=== PATIENT | female | born 1990 | race Caucasian/White ===

== ENCOUNTER → 2024-06-17 08:29 | Outpatient (CLI) | payer OTHER, SELFPAY ==
[2024-06-19 20:10] LABS: AFP Value 120.4 ng/mL (.); Gest Age on Col Date 20.7 weeks (.); Insulin Dep Diabetes No (.); OSBR Risk 1IN 3671 (.); Results Report (.); Test Results *Screen Negative* (.)
== END ==
PROVIDERS: PCP Physician Assistant Medical; Referring Provider Obstetrics & Gynecology; Visit Provider Obstetrics & Gynecology
DX: Z34.82 Encounter for supervision of other normal pregnancy, second trimester (principal); Z3A.19 19 weeks gestation of pregnancy
CPT/HCPCS: 36415; 82105

== ENCOUNTER → 2024-07-23 12:21 | Outpatient (CLI) | payer OTHER, SELFPAY ==
[2024-07-23 14:31] LABS: Hematocrit 32.2 % (36-46)
[2024-07-23 15:03] LABS: GTT (PREG) 1 Hour PP 50gm Dose 108 mg/dL (76-139)
== END ==
PROVIDERS: PCP Physician Assistant Medical; Referring Provider Obstetrics & Gynecology; Visit Provider Obstetrics & Gynecology
DX: Z3A.26 26 weeks gestation of pregnancy (principal); Z34.82 Encounter for supervision of other normal pregnancy, second trimester
CPT/HCPCS: 36415; 82950; 85014; 85018

== ENCOUNTER 2024-08-28 09:57 | Outpatient (CLI) | payer OTHER, SELFPAY | END 2024-08-28 11:44 | disposition home or self-care (01) | LOC: LABOR 10:44 → OB 08-31 06:12 | PROVIDERS: PCP Physician Assistant Medical; Referring Provider Obstetrics & Gynecology; Visit Provider Obstetrics & Gynecology | DX: O09.523 Supervision of elderly multigravida, third trimester (principal); O30.033 Twin pregnancy, monochorionic/diamniotic, third trimester; Z3A.29 29 weeks gestation of pregnancy | CPT/HCPCS: 59025; G0378; G0379 ==

== ENCOUNTER 2024-09-03 15:46 | Outpatient (CLI) | payer OTHER, SELFPAY | END 2024-09-03 16:37 | disposition home or self-care (01) | LOC: OB 09-07 11:43 | PROVIDERS: PCP Physician Assistant Medical; Referring Provider Obstetrics & Gynecology; Visit Provider Obstetrics & Gynecology | DX: O30.033 Twin pregnancy, monochorionic/diamniotic, third trimester (principal); O09.523 Supervision of elderly multigravida, third trimester; Z3A.30 30 weeks gestation of pregnancy | CPT/HCPCS: 59025; G0378; G0379 ==

== ENCOUNTER 2024-09-09 10:01 | Outpatient (CLI) | payer OTHER, SELFPAY | END 2024-09-09 10:58 | disposition home or self-care (01) | LOC: LABOR 11:00 → OB 09-13 09:26 | PROVIDERS: PCP Physician Assistant Medical; Referring Provider Obstetrics & Gynecology; Visit Provider Obstetrics & Gynecology | DX: O09.523 Supervision of elderly multigravida, third trimester (principal); O30.003 Twin pregnancy, unspecified number of placenta and unspecified number of amniotic sacs, third trimester; Z3A.31 31 weeks gestation of pregnancy | CPT/HCPCS: 59025; G0378; G0379 ==

== ENCOUNTER 2024-09-16 11:52 | Outpatient (CLI) | payer OTHER, SELFPAY | END 2024-09-16 12:33 | disposition home or self-care (01) | LOC: LABOR 12:10 → OB 09-21 08:45 | PROVIDERS: PCP Physician Assistant Medical; Referring Provider Obstetrics & Gynecology; Visit Provider Obstetrics & Gynecology | DX: O30.003 Twin pregnancy, unspecified number of placenta and unspecified number of amniotic sacs, third trimester (principal); O09.523 Supervision of elderly multigravida, third trimester; Z3A.32 32 weeks gestation of pregnancy | CPT/HCPCS: 59025; G0378; G0379 ==

== ENCOUNTER 2024-09-23 09:43 | Outpatient (CLI) | payer OTHER, SELFPAY | END 2024-09-23 10:41 | disposition home or self-care (01) | LOC: OB 09-24 11:39 | PROVIDERS: PCP Physician Assistant Medical; Referring Provider Obstetrics & Gynecology; Visit Provider Obstetrics & Gynecology | DX: O30.003 Twin pregnancy, unspecified number of placenta and unspecified number of amniotic sacs, third trimester (principal); O09.523 Supervision of elderly multigravida, third trimester; Z3A.35 35 weeks gestation of pregnancy | CPT/HCPCS: 59025; G0378; G0379 ==

== ENCOUNTER 2024-09-30 11:05 | Outpatient (CLI) | payer OTHER, SELFPAY | END 2024-09-30 11:45 | disposition home or self-care (01) | LOC: LABOR 11:21 → OB 10-06 08:30 | PROVIDERS: PCP Physician Assistant Medical; Referring Provider Obstetrics & Gynecology; Visit Provider Obstetrics & Gynecology | DX: O30.003 Twin pregnancy, unspecified number of placenta and unspecified number of amniotic sacs, third trimester (principal); O09.523 Supervision of elderly multigravida, third trimester; Z3A.34 34 weeks gestation of pregnancy | CPT/HCPCS: 59025; G0378; G0379 ==

== ENCOUNTER 2024-10-08 12:55 | Outpatient (CLI) | payer OTHER, SELFPAY | END 2024-10-08 13:45 | disposition home or self-care (01) | LOC: OB 10-12 06:19 | PROVIDERS: PCP Physician Assistant Medical; Referring Provider Obstetrics & Gynecology; Visit Provider Obstetrics & Gynecology | DX: O09.523 Supervision of elderly multigravida, third trimester (principal); O30.003 Twin pregnancy, unspecified number of placenta and unspecified number of amniotic sacs, third trimester; Z3A.35 35 weeks gestation of pregnancy; Z3A.36 36 weeks gestation of pregnancy | CPT/HCPCS: 59025; 87653; G0378; G0379 ==

== ENCOUNTER → 2024-10-08 14:22 | Outpatient (CLI) | payer OTHER, SELFPAY ==
[2024-10-09 16:34] LABS: Strep Grp B PCR NEG for Grp B Strep
== END ==
PROVIDERS: PCP Physician Assistant Medical; Visit Provider Obstetrics & Gynecology
DX: Z34.83 Encounter for supervision of other normal pregnancy, third trimester (principal); Z3A.36 36 weeks gestation of pregnancy
CPT/HCPCS: 87653

== ENCOUNTER 2024-10-15 11:02 | Outpatient (CLI) | payer OTHER, SELFPAY | END 2024-10-15 12:00 | disposition home or self-care (01) | LOC: OB 10-16 10:12 | PROVIDERS: PCP Physician Assistant Medical; Referring Provider Obstetrics & Gynecology; Visit Provider Obstetrics & Gynecology | DX: O30.003 Twin pregnancy, unspecified number of placenta and unspecified number of amniotic sacs, third trimester (principal); O09.523 Supervision of elderly multigravida, third trimester; Z3A.36 36 weeks gestation of pregnancy | CPT/HCPCS: 59025; G0378; G0379 ==

== ENCOUNTER 2024-10-16 07:08 | Inpatient (IN) | payer OTHER, SELFPAY ==
[2024-10-16] VITALS (10 sets, daily range): BP systolic 119–131; BP diastolic 66–91; PULSE 107–133; RESP 13–24; TEMP 36.1–36.9; O2SAT 98–100
[2024-10-16 09:04] LABS: Add Manual Diff / Slide Review NO; Basophils Absolute Auto 100 /uL (0-100); Basophils Percent Auto 0.9 % (0-2); Eosinophils Absolute Auto 100 /uL (0-450); Eosinophils Percent Auto 0.6 % (2-4); Hematocrit 39.7 % (36-46); Hemoglobin 13.5 g/dL (12.0-16.0); Lymphocytes Absolute Auto 2200 /uL (1100-4500); Lymphocytes Percent Auto 22.4 % (25-40); Mean Corpuscular Hemoglobin 30.9 PG (26-34); Monocytes Absolute Auto 500 /uL (0-900); Monocytes Percent Auto 5.3 % (3-14); Neutrophils Absolute Auto 7000 /uL (1500-7000); Neutrophils Percent Auto 70.8 % (50-75); Platelet Count 259 X10^3/uL (150-400); Red Blood Cell Count 4.36 X10^6/uL (4.0-5.2); Red Cell Distribution Width 13.2 % (11.6-14.8); White Blood Cell Count 9.8 X10^3/uL (4.5-11.0)
[2024-10-16] MEDS: CEFAZOLIN 2 GM/100 ML PREMIX 100 ML IV (13:18)
[2024-10-16] MEDS: AZITHROMYCIN 500 MG in DEXTROSE 5% IN WATER 250 ML 250 MG IV (13:29)
--- NOTE | 2024-10-16 13:31 | SUR.OPER ---
Viable baby born B born at 1312 on 10/16[birth year]24.
[2024-10-16] MEDS: BUPIVACAINE LIPOSOME 266 MG/20 ML VIAL INJ (13:41)
[2024-10-16] MEDS: ACETAMINOPHEN IV 1,000 MG/100 ML VIAL 400 MG IV (13:46)
--- NOTE | 2024-10-16 14:25 | SUR.OPER ---
Per Dr. fried, stat for baby B.
--- NOTE | 2024-10-16 14:27 | SUR.OPER ---
Supine on padded OR bed, head on pillow, arms up by head, legs uncrossed, safety belt at thigh, tape over blanket over lower legs.
[2024-10-16] MEDS: LACTATED RINGERS 500 ML 1000 ML IV (14:56)
[2024-10-16] MEDS: LACTATED RINGERS 1,000 ML 100 ML IV ×2 (14:58→19:47)
--- NOTE | 2024-10-16 19:29 | PM.OBHP.IH.1 ---
OB HPI Date/Time Date of admission: 10/16/24 Date Patient Seen: 10/16/24 Time Patient Seen: 07:30 History of Present Condition Chief complaint: OBSERVATION ROS Calculator Estimated Delivery Date Method Current WG Current Estimate 11/10/24 Ultrasound #2 36w 3d Other Estimates 10/30/24 LMP (Certain) 38w 0d 11/06/24 Ultrasound #1 37w 0d # 2 Estimated Gestational Age (weeks): 36+3 : 4 Para: 2 care: good care, initiated at week # (11), number of visits (14) and pounds weight gain (22) Dating criteria OB: LMP confirmed by 1st trimester US Ultrasounds: normal 1st trimester US and normal mid trimester US Obstetrical complications: other (mono/di twins) Medical complications OB: none Indications Indication for induction OB: maternal distance (advanced cervical dilation at 6cm) Preadmission Labs Last OB Lab Results: Blood Type A Positive 10/16/24 07:39 Antibody Screen Negative 10/16/24 07:39 Hct 36.0 % (36-46) 10/16/24 14:30 Hgb 12.0 g/dL (12.0-16.0) 10/16/24 14:30 Glucose 1 Hr 50 gm 108 mg/dL (76-139) 07/23/24 13:39 Group B Strep (PCR) Neg for grp b strep 10/08/24 14:22 -: Chlamydia screen: negative, Gonorrhea screen: negative and Urine: negative -: PAP smear: Normal Genetic Screens: Cell-free DNA: Normal (low risk female) and Alpha-fetoprotein: Normal External Labs -: Urine: negative Prior (ies) Past Pregnancies Del. Date GA/Weeks Labor Lgth Wt Sex Route Outcome Anesthesia Place Delv Breastfeed Preg Comp Name 12/31/15 38+ 15 5 lb 8 oz Male vaginal live - full term none home 14 months intrauterine growth restr Jose F 10/14/17 ~6 spontaneous 03/08/23 39 17 6 lb 12 oz Female vaginal live - full term none [facility] [place] 13 months pre-eclampsia hemorrhage Kaye Delivery Date: 10/14/17 Last Updated by: Emma Wu RN Conception around same time as IUD insertion, passed spontaneously w/ no complications Delivery Date: 03/08/23 Last Updated by: Emma Wu RN Needed IV iron and 2 units PRBCs Hx # Term Pregnancies: 2 Hx # Pregnancies: 0 Number of Living Children: 2 Multiple births: 0 Spontaneous abortions: 1 Ectopic pregnancies: 0 Elective abortions: 0 Evaluation Evaluation Baseline heart rate: 135 Variability: Moderate (11-25) monitor accelerations: Present Monitor Decelerations: Absent Contraction Frequency (minutes): 0 Status: Category l Dilation (cm): 6 Effacement (%): 80 station: -1 PFS Medical History (Updated 09/07/24 @ 06:54 by Oanh Llanes MD) Herpetic neil Depression with anxiety (~2006) ADHD (~2019) Migraine without aura Kidney infection Acne Surgical History (Updated 05/15/24 @ 11:15 by Emma Wu RN) H/O cervical biopsy Family History (Updated 06/21/24 @ 18:50 by Adia Peoples) Mother Depression Crohn's disease Alcohol abuse Mental health problem Father Paraesophageal hernia Grandmother Colon cancer Oral cancer Stroke Grandfather Heart attack Heart disease Grandmother Cardiac arrhythmia Grandfather Hyperlipidemia Hypertension Social History marital status: number of children: 2 household members: spouse and children lives independently: Yes caregiver/support person: Yes housing: house pets and animals: Yes (dog) education level: college occupational status: unemployed current occupational exposures/hazards: No special umang needs: No travel history: recent seatbelt use: always water heater temp set < 120 deg: Yes working smoke detector in home: Yes fire extinguisher in home: Yes carbon monox detector in home: Yes firearms in home: No do you feel safe at home: Yes Smoking Status: Never smoker second hand exposure: No alcohol intake: former substance use type: marijuana during the past year weight has: other well-balanced diet: daily or most days daily servings fruits/ve-4 caffeine: Yes (single cup coffee or tea in AM) Type(s) of exercise: walking and other frequency: daily Meds Home Medications and Allergies Home Medications Medication Instructions Recorded Confirmed Type sumatriptan succinate 25 mg tablet 25 mg PO ONCE PRN 06/27/22 10/15/24 History (Imitrex) Lactobac 51-Bifidobac cap PO 05/15/24 10/15/24 History 3-L.lactis-S.thermophilus 4 billion cell capsule (Daily Probiotic (10 Strains)) aspirin 81 mg tablet,delayed 81 mg PO DAILY 05/15/24 10/15/24 History release (Adult Low Dose Aspirin) calcium carbonate (Antacid 300 mg PO BID 05/15/24 10/15/24 History Extra-Strength) magnesium oxide 400 mg PO DAILY 05/15/24 10/15/24 History vitamin-ferrous sulfate tab PO 05/15/24 10/15/24 History 27 mg iron-folic acid 0.8 mg tablet [id number] antigen-AS01E 0.5 ml IM ONCE #1 ea 08/28/24 10/15/24 Rx adjuvant(PF) 120 mcg/0.5 mL IM suspension, kit pantoprazole 40 mg tablet,delayed 40 mg PO DAILY #30 tabs 09/30/24 10/15/24 Rx release (Protonix) valacyclovir 500 mg tablet 500 mg PO DAILY #30 tabs 09/30/24 10/15/24 Rx (Valtrex) sertraline 100 mg tablet 100 mg PO DAILY #90 tabs 10/13/24 10/15/24 Rx Allergies Allergy/AdvReac Type Severity Reaction Status Date / Time Penicillins Allergy Intermediate Facial Verified 10/15/24 11:58 swelling OB Exam Narrative Exam Narrative: Generally: Patient is sitting up in bed, no acute distress Lungs: Clear to auscultation bilaterally Cardiovascular: Regular rate and rhythm Fundal height: 46 cm Estimated weight: Baby A 6#, Baby B 5#10oz Extremities: No edema Objective Labs 10/16/24 14:30 Labs: Laboratory Results - last 24 hr 10/16/24 10/16/24 07:39 14:30 WBC 9.8 RBC 4.36 Hgb 13.5 12.0 Hct 39.7 36.0 MCV 91.0 MCH 30.9 MCHC 34.0 RDW 13.2 Plt Count 259 Neut % (Auto) 70.8 Lymph % (Auto) 22.4 L [place] % (Auto) 5.3 Eos % (Auto) 0.6 L Baso % (Auto) 0.9 Neut # (Auto) 7000 Lymph # (Auto) 2200 [place] # (Auto) 500 Eos # (Auto) 100 Baso # (Auto) 100 Blood Type A Positive Antibody Screen Negative Assessment and Plan Assessment and Plan Assessment and Plan narrative: Assessment: 34 year old at 36+3 mono/di twins with advanced cervical dilation at 6cm Baby A vertex, Baby B breech Plan: AROM with slightly bloody amniotic fluid Expectant management to for Baby A, will u/s after first delivery and make plan for Baby B To OR for delivery Time-Based Coding :: [TOTAL MINUTES] spent with patient and on the chart (including review of chart, obtaining history, exam, reviewing outside data, placing orders, documenting exam and treatment plan, and counseling patient) on [DATE].
[2024-10-16] MEDS: ACETAMINOPHEN 325 MG TABLET 650 MG PO (20:06)
[2024-10-17] MEDS: IBUPROFEN 600 MG TABLET PO ×4 (01:51→21:07)
[2024-10-17] MEDS: ACETAMINOPHEN 325 MG TABLET 650 MG PO ×3 (05:20→17:49)
[2024-10-17 06:28] LABS: Add Manual Diff / Slide Review NO; Basophils Absolute Auto 100 /uL (0-100); Basophils Percent Auto 0.4 % (0-2); Eosinophils Absolute Auto 100 /uL (0-450); Eosinophils Percent Auto 0.3 % (2-4); Hemoglobin 9.8 g/dL (12.0-16.0); Lymphocytes Absolute Auto 3100 /uL (1100-4500); Mean Corpuscular HGB Conc 33.9 % (30-36); Mean Corpuscular Hemoglobin 31.1 PG (26-34); Mean Corpuscular Volume 91.6 fL (80-100); Monocytes Absolute Auto 1500 /uL (0-900); Monocytes Percent Auto 8.4 % (3-14); Neutrophils Absolute Auto 12600 /uL (1500-7000); Neutrophils Percent Auto 72.9 % (50-75); Platelet Count 236 X10^3/uL (150-400); Red Blood Cell Count 3.17 X10^6/uL (4.0-5.2); Red Cell Distribution Width 13.2 % (11.6-14.8); White Blood Cell Count 17.3 X10^3/uL (4.5-11.0)
--- NOTE | 2024-10-17 11:34 | P.PCNOB_ITS ---
Events: Labor Augmentation and Multiple gestation (Emanuel/di twins) Labor & Delivery Delivery date: 10/17/24 Delivery Time: 12:47 Cervical ripening method: none Induction method: AROM Delivery monitor: external FHT and external uterine Route of delivery: Episiotomy description: None L&D Laceration Description: None Estimated blood loss (mL): 50 Anesthesia Type: None Complications: Mild shoulder dystocia Narrative: Patient complete and pushed at 57 minutes. At 1247, a live female delivered spontaneously over an intact perineum. No nuchal cord. The remainder of the body delivered without difficulty and was placed on mom's abdomen. The cord was not cut. Apgars 8 at 1 minute, and 8 at 5 minutes. BW: 6#8oz. No epidural. No lacerations. Patient taken back to OR for delivery of Baby B. [place] Baby 1: gender: Female Presentation: vertex Position: Left Occiput Anterior Cord Vessel Description: 3 Vessels score (1 min): 8 score (5 min): 8 weight: 6 lb 8 oz Plan for aftercare: Routine care
--- NOTE | 2024-10-17 11:56 | PM.OBCS.1 ---
Operative Date/Time/Diagnoses Date of procedure: 10/17/24 Time of procedure: 14:00 Pre-op diagnosis: 36+3 wks gestation Baby B breech bradycardia Post-op diagnosis: same Procedure & Clinicians Procedure: The patient was brought to the operating room. By ultrasound the baby was found to be in the oblique presentation with the head in the left upper quadrant. Initially the baby's heart rate was in the 90s. It k[place] to 118 beats per minute, and then back down to the 60s. A decision was made to proceed with an emergency section. This was confirmed by ultrasound. The patient underwent an emergent primary section and excision of a polypoid piece of vaginal mucosa just inside the introitus. Same procedure as scheduled: Yes Indications: 36+ 3 weeks' gestation bradycardia Breech presentation Surgeon: Oanh Llanes Click Yes if Unassisted: No Thrasher Feeder: Joanna Carbajal Reason for Thrasher Feeder: The assurance assistant was necessary to retract upon entry into the abdomen and uterus. She assisted with delivery with fundal pressure. She assisted with closure with retraction, clipping of suture, and closure of the contralateral fascia. Anesthesia Type: General Operative Notes Findings: Live female infant in the oblique lie with the head in the left upper quadrant. Normal uterus, tubes, and ovaries Tight nuchal cord Closure Type: primary Specimen(s): cord blood, cord pH and placenta Intraoperative meds administered: Acetaminophen, Ketorolac and Pitocin Applied: Catheter (Cu[place]a to continuous drainage) Estimated Blood Loss (mL): 500 Blood products transfused: none Procedure in detail: A Cuenca catheter was placed. The mom's abdomen was prepped with Betadine quickly. After general endotracheal anesthesia was achieved, a Pfannenstiel skin incision was made 2 fingerbreadths above the pubic symphysis and carried through to the underlying layer of fascia. The fascia was nicked in the midline and extended bluntly. The rectus muscles were in the midline. The peritoneum was identified, and entered sharply with the Metzenbaum scissors. The vesicouterine peritoneum was identified, grasped pickup, and entered sharply with the Metzenbaum scissors. This incision was extended bilaterally, and the bladder flap created digitally. The bladder blade was reinserted. The lower uterine segment was incised in a transverse fashion. There was clear amniotic fluid. The infant was found to be in the oblique lie with the head in the left upper quadrant and the feet in the right lower quadrant. The feet were grasped and the infant was delivered with total breech extraction. A tight nuchal cord x1 was reduced. The cord was milked. The cord was double clamped and cut quickly, and the infant handed off to waiting RN, RT, and rn digestive. Pitocin was given in the IV fluids. The placenta was delivered by expression. The uterus was cleared of all clots and debris. The uterine incision was repaired with 1. Chromic in a running interlocking fashion. A second layer of the same suture was used for an imbricating layer. Hemostasis was achieved. The tubes and ovaries were examined and were found to be normal. The gutters were cleared of all clots and debris. The bladder flap was closed using 2-0 Vicryl in a running fashion. The parietal peritoneum was closed using 2-0 Vicryl in a running fashion. The fascia was reapproximated using 0 Vicryl in a running fashion. Exparel, 20 cc was injected at this layer. The subcutaneous layer was copiously irrigated. There was minimal subcutaneous tissue. The skin was closed with 4-0 Monocryl in a subcuticular fashion. Steri-Strips and an Aquacel dressing were placed. The uterus was expressed of a small amount of old blood. There was a pedunculated flap of tissue coming from the vagina just inside the introitus, from a previous delivery. This was cleaned with Betadine. Using the cautery, this was excised at the base which was approximately 4 mm. Hemostasis was achieved. Sponge, lap, and instrument counts were correct x2. The patient tolerated the procedure well, and was taken to PACU in stable condition. Complications: none Baby 1: Gender: Female Presentation: vertex Position: Left Occiput Anterior Cord Vessel Description: 3 Vessels score (1 min): 8 score (5 min): 8 weight: 6 lb 8 oz 2: Delivery Date: 10/17/24 Delivery Time: 13:12 Infant Gender: Female Presentation: breech (oblique lie, head in left upper quadrant) Placental Delivery Description: Expressed Cord Vessel Description: 3 Vessels, Nuchal Cord, Tight and Reduced score (1 min): 3 score (5 min): 5 weight: 5 lb 6 oz Post-operative Condition: stable Disposition: PACU Aftercare: routine postop
--- NOTE | 2024-10-17 12:09 | P.PNOB_ITS ---
Subjective - OB Subjective Patient comments: no complaints, pain well controlled and tolerating diet baby status: doing well and nursing well (baby A) [place] feeding status: exclusively breast feeding Date Patient Seen: 10/17/24 Time Patient Seen: 08:15 Interval history: POD #1 s/p Emergent C section of Baby B, and PPD#1 s/p of Baby A. Patient doing very well. Ambulating without assistance. Tolerating diet. Voided without the catheter. Pain well controlled. Exam Vital Signs (past 8 hours): Oxygen Delivery Method Room Air Narrative Exam Narrative: Gen: NAD Lungs: CTA bilat CV: RRR Abd: Soft Fundus: Firm U/=1 Incision: C/D/I with Aquacel dressing Ext: No edema, neg Gil's Objective Labs 10/17/24 06:21 Labs: Laboratory Results - last 24 hr 10/16/24 10/17/24 14:30 06:21 WBC 17.3 H D RBC 3.17 L Hgb 12.0 9.8 L Hct 36.0 29.0 L MCV 91.6 MCH 31.1 MCHC 33.9 RDW 13.2 Plt Count 236 Neut % (Auto) 72.9 Lymph % (Auto) 18.0 L [place] % (Auto) 8.4 Eos % (Auto) 0.3 L Baso % (Auto) 0.4 Neut # (Auto) 33577 H Lymph # (Auto) 3100 [place] # (Auto) 1500 H Eos # (Auto) 100 Baso # (Auto) 100 Assessment & Plan Plan day: 1 plan OB: routine care and routine postop care Comments: Anticipate discharge 10/18/24 Time-Based Coding :: [TOTAL MINUTES] spent with patient and on the chart (including review of chart, obtaining history, exam, reviewing outside data, placing orders, documenting exam and treatment plan, and counseling patient) on [DATE].
[2024-10-18] MEDS: ACETAMINOPHEN 325 MG TABLET 650 MG PO ×2 (01:20→18:31)
[2024-10-18] MEDS: IBUPROFEN 600 MG TABLET PO ×2 (03:23→08:15)
[2024-10-18] MEDS: SERTRALINE 50 MG TABLET 100 MG PO (08:14)
[2024-10-18] MEDS: DOCUSATE 100 MG CAPSULE PO (08:15)
[2024-10-18] MEDS: PRENATAL VIT,CALC/IRON/FOLIC 1 TABLET 1 TAB PO (08:15)
--- NOTE | 2024-10-18 10:15 | PM.OBPN.1 ---
Subjective - OB Subjective Patient comments: no complaints [place] baby status: doing well and other (baby A doing well, baby B in NICU ) feeding status: pumping and bottle feeding Date Patient Seen: 10/18/24 Time Patient Seen: 10:24 Interval history: POD #2 s/p Emergent C section of Baby B, and PPD#2 s/p of Baby A. Patient doing very well. Ambulating and voiding without difficulty, s/p BM this AM. Pain well controlled with minimal oral analgesia. Desires dc to home today Exam Vital Signs (past 8 hours): Oxygen Delivery Method Room Air maternal VSS/afebrile, reviewed in OBIX Const General: cooperative and comfortable Nutritional Appearance: thin Orientation: alert, awake and oriented x3 Limitations: mental status not altered Chest Chest: normal inspection of the chest Resp Effort & Inspection: normal respiratory effort and able to speak in complete sentences Cardio Rate: regular rate Pulses: normal peripheral pulses GI Inspection: normal to inspection Other: incision c/d/i with Aquacel in place, mild appropriate postoperative tenderness without milan fundal tenderness fundus firm, at level of umbilicus Other: deferred Skin General: no rashes or lesions noted Neuro General: patient alert, patient awake and patient oriented x3 Extrem General: normal to inspection Psych Mental Status: mental status grossly normal Judgment: judgment good Objective Labs 10/17/24 06:21 Assessment & Plan Plan day: 2 plan OB: discharge home Comments: PPD/POD2, all discharge milestones met and desires dc to home routine precautions reviewed rx sent PPD/POD1 per Dr. Llanes 1wk incision check in office Time-Based Coding :: [TOTAL MINUTES] spent with patient and on the chart (including review of chart, obtaining history, exam, reviewing outside data, placing orders, documenting exam and treatment plan, and counseling patient) on [DATE].
== END 2024-10-18 18:52 | disposition home or self-care (01) | DRG 786 ==
PROVIDERS: Anesthesiology; Admitting Provider Obstetrics & Gynecology; PCP Physician Assistant Medical; Referring Provider Obstetrics & Gynecology; Visit Provider Obstetrics & Gynecology
PROC: (CPT 59514; principal; 2024-10-16 13:00)
DX: O32.1XX2 Maternal care for breech presentation, fetus 2 (principal); O60.14X1 Preterm labor third trimester with preterm delivery third trimester, fetus 1; O76 Abnormality in fetal heart rate and rhythm complicating labor and delivery; O30.033 Twin pregnancy, monochorionic/diamniotic, third trimester; Z3A.36 36 weeks gestation of pregnancy; Z37.2 Twins, both liveborn; O99.72 Diseases of the skin and subcutaneous tissue complicating childbirth; N84.2 Polyp of vagina
CPT/HCPCS: 36415; 59050; 59409; 59510; 59514; 76815; 85014; 85018; 85025; 86850; 86900; 86901; G0379; J0131; J0666; J0690; J1100; J2405; J2590; J2704; J3010